=== PATIENT | female | born 1950 ===

== ENCOUNTER 2021-01-16 09:00 | Outpatient (CLI) | payer SELFPAY ==
[2021-01-16] MEDS ORDERED: COVID-19 VACC, MRNA(PFIZER)/PF 30 MCG/0.3 ML IM ONE (11:30)
== END 2021-01-16 09:01 | disposition home or self-care (01) ==
LOC: COVVAC 09:00
PROVIDERS: ATTEND Internal Medicine
DX: Z23 Encounter for immunization (principal)
CPT/HCPCS: 0001A